=== PATIENT | male | born 1985 | race Caucasian/White ===

== ENCOUNTER 2021-07-16 08:32 | Outpatient (REF) | payer OTHER, SELFPAY ==
--- NOTE | ~2021-07-16 | XR_ITS ---
EXAMINATION: XR HAND, RIGHT CLINICAL INFORMATION: Confusion COMPARISON: None TECHNIQUE: PA, lateral, and oblique views of the right hand. FINDINGS: Bone alignment is normal. No fracture or dislocation is seen. The joint spaces are normal. There is soft tissue swelling over the distal second finger. There is a 1 mm in length radiopaque density that projects over the dorsal soft tissues/nailbed overlying the distal tuft of the second finger. Possible soft tissue foreign body should be considered. XR/XR hand RT min 3V IMPRESSION: No fracture or dislocation. Soft tissue swelling and question 1 mm radiopaque foreign body over the dorsal distal distal tuft of the second finger/nailbed.
== END 2021-07-16 08:33 | disposition home or self-care (01) ==
LOC: HO.HMGCX 08:32
PROVIDERS: Visit Provider Internal Medicine
DX: S60.00XD Contusion of unspecified finger without damage to nail, subsequent encounter (principal)
CPT/HCPCS: 73130

== ENCOUNTER 2021-08-22 07:57 | Outpatient (REF) | payer OTHER, SELFPAY ==
[2021-08-22 08:17] LABS: MANUAL DIFF FLAG NO
[2021-08-22 08:47] LABS: Basophils Percent Auto 0.5 % (0-2); Eosinophils Absolute Auto 0.1 X10*3/uL (0.0-0.4); Eosinophils Percent Auto 0.8 % (0-4); Hematocrit 43.7 % (42.0-52.0); Hemoglobin 14.8 g/dl (14.0-18.0); Imm Gran Abs Auto 0.02 X10*3/uL (0.00-0.03); Imm Gran Pct Auto 0.3 % (0.0-0.4); Lymphocytes Absolute Auto 1.8 X10*3/uL (1.2-4.9); Lymphocytes Percent Auto 27.8 % (20-40); Mean Corpuscular HGB Conc 33.9 g/dl (31.0-36.0); Mean Corpuscular Hemoglobin 28.6 pg (27.0-33.0); Mean Corpuscular Volume 84.5 fL (80.0-98.0); Mean Platelet Volume 9.1 fL (9.4-12.4); Monocytes Absolute Auto 0.6 X10*3/uL (0.1-1.2); Monocytes Percent Auto 10.2 % (2-11); Neutrophils Absolute Auto 3.8 x10*3/uL (2.0-8.3); Neutrophils Percent Auto 60.4 % (45-73); Platelet Count 371 X10*3/uL (160-400); Red Blood Count 5.17 X10*6/uL (4.60-5.80); Red Cell Distribution Width 12.4 % (11.0-16.0); White Blood Count 6.3 X10*3/uL (4.8-10.8)
[2021-08-22 09:15] LABS: Alanine Aminotransferase 40 U/L (0-40); Albumin Level 4.6 g/dL (3.5-5.0); Alkaline Phosphatase 65 U/L (39-117); Anion Gap 11 (12-20); Aspartate Amino Transferase 23 U/L (5-37); Bilirubin Total 0.6 mg/dL (0.0-1.0); Blood Urea Nitrogen 18 mg/dL (9-16); Calcium 9.9 mg/dL (8.4-10.2); Carbon Dioxide 25 mmol/L (22-29); Chloride 109 mmol/L (96-108); Cholesterol 239 mg/dL; Estimated Glomerular Filt Rate > 60; Glucose Fasting 105 mg/dL (60-99); HDL Cholesterol 42 mg/dL; LDL Cholesterol Calculated 179 mg/dl; Potassium 4.5 mmol/L (3.3-5.1); Sodium 140 mmol/L (135-145); Total Protein 7.1 g/dL (6.5-8.0); Triglycerides 93 mg/dL
[2021-08-22 09:31] LABS: TSH reflex Free T4 1.15 uIU/mL (0.32-4.0)
== END 2021-08-22 07:58 | disposition home or self-care (01) ==
LOC: HO.LAB 07:57
PROVIDERS: Visit Provider Nurse Practitioner Family
DX: I10 Essential (primary) hypertension (principal); E78.00 Pure hypercholesterolemia, unspecified; D17.9 Benign lipomatous neoplasm, unspecified; Z83.3 Family history of diabetes mellitus; Z76.89 Persons encountering health services in other specified circumstances
CPT/HCPCS: 36415; 80053; 80061; 84443; 85025

== ENCOUNTER → 2021-09-11 09:34 | Outpatient (BNVA) | payer OTHER, SELFPAY | PROVIDERS: PCP Nurse Practitioner Family; Referring Provider Nurse Practitioner Family; Visit Provider Surgery ==

== ENCOUNTER 2021-10-09 07:54 | Outpatient (REF) | payer OTHER, SELFPAY ==
[2021-10-09 07:56] VITALS: BP 125/95; PULSE 83; RESP 16; TEMP 36.7; O2SAT 100
[2021-10-09 07:59] VITALS: BMI 27.6
[2021-10-09 08:26] VITALS: BP 121/83; PULSE 63; RESP 16; O2SAT 100
--- NOTE | 2021-10-09 08:50 | W.PM.OPN ---
Operative Note Operative Note Date of Service: 10/09/21 Narrative: Preop diagnosis: Lipoma, right upper arm Postop diagnosis: Lipoma, intramuscular, right upper arm Procedure: Excision of intramuscular lipoma, right upper arm, local anesthesia Surgeon: Aren Jesus MD Patient is a 36-year-old male who was seen in the office because of a large lipomatous mass on the right upper arm. He understood the technique of excision under local anesthesia. He was aware of the risks, benefits, and alternatives He was brought to the minor procedure room. He was placed supine with right arm abducted to expose the stoma which was on the medial aspect of the right upper arm. This area was prepped and draped. Lidocaine 1% was used for local anesthesia. The palpable lipoma was initially felt to be about 5 cm in size. I made an incision over the skin overlying this lipoma using blade 15. This was carried down venous the skin and subcutaneous fat. I then used the Metzenbaum scissors to continue to dissect through the subcutaneous fat. The lipoma was noted to be actually under the muscle layer. Had to open up the fascia and do some muscle splitting gently until was able to see the lipomatous mass. I gently dissected the lipoma with the Metzenbaum scissors to free this from the rest of muscle layer and from the underside. The lipoma was actually about 9 cm x 7 cm in dimension.This was actually also adjacent to what appeared to be the cephalic vein so we had to gently separate this was sharp dissection using Metzenbaum scissors until was able to complete the for this. This was sent as a specimen I irrigated the area of dissection with normal saline. I reapposed the fascia with Dexon 3-0 interrupted sutures. Skin closure was achieved with nylon 3-0 interrupted sutures. Dressings were applied. The arm was wrapped with a Azam roll . The patient tolerated procedure well. There were no complication noted. Blood loss about 10 cc . Patient was wound care instructions and will be seen in the office for a follow-up visit.
== END 2021-10-09 07:55 | disposition home or self-care (01) ==
LOC: HO.MS 07:54
PROVIDERS: PCP Nurse Practitioner Family; Visit Provider Surgery
PROC: (CPT 24073; principal; 2021-10-09 08:00)
DX: D17.21 Benign lipomatous neoplasm of skin and subcutaneous tissue of right arm (principal)
CPT/HCPCS: 24073; 88304

== ENCOUNTER → 2021-10-21 12:51 | Outpatient (BNVA) | payer OTHER, SELFPAY | PROVIDERS: PCP Nurse Practitioner Family; Visit Provider Surgery ==